=== PATIENT | female | born 1950 | race Caucasian/White ===

== ENCOUNTER 2017-03-16 07:03 | Emergency (ER) | payer MEDICARE ==
[2017-03-16 07:17] VITALS: BP 158/95
--- NOTE | 2017-03-16 07:27 | UC ---
Respiratory Complaint HPI - HPI Summary HPI Summary: cough x 7 days non-productive cough, no nasal congestion , + fatigue, wheezing + fever, chills - History of Current Complaint Chief Complaint: UCRespiratory Stated Complaint: ACHES CONGESTION FEVER COUGH Time Seen by Provider: 03/16/17 07:10 Hx Obtained From: Patient Onset/Duration: Gradual Onset, Lasting Days - 7, Still Present Timing: Constant Severity Initially: Moderate Severity Currently: Moderate Character: Cough: Nonproductive Aggravating Factors: Exertion, Deep Breaths, Recumbent Position Alleviating Factors: Nothing Associated Signs And Symptoms: Positive: Dyspnea, Fever, Chills, Wheezing. Negative: Hemoptysis, Dizziness, Calf Pain, Calf Swelling, Edema, URI, Nasal Congestion, Hoarseness, Sinus Discomfort - Allergies/Home Medications Allergies/Adverse Reactions: Allergies Allergy/AdvReac Type Severity Reaction Status Date / Time Erythromycin AdvReac Intermediate Rash Verified 03/16/17 07:11 Penicillin V AdvReac Intermediate Rash Verified 03/16/17 07:11 [From Penicillin VK Potassium] Home Medications: Home Medications Clonidine HCl [Catapres 0.1 MG TAB] 0.1 mg PO BEDTIME 03/16/17 [History Confirmed 03/16/17] DULoxetine DR CAP* [Cymbalta CAP*] 20 mg PO DAILY 03/16/17 [History Confirmed ] Levothyroxine TAB* [Synthroid TAB*] 50 mcg PO DAILY 03/16/17 [History Confirmed 03/16/17] Naltrexone TAB* 1.5 mg PO DAILY 03/16/17 [History Confirmed 03/16/17] Olmesartan Medoxomil [Benicar] 40 mg PO DAILY 03/16/17 [History Confirmed ] Oxcarbazepine [Oxtellar Xr] 75 mg PO BEDTIME 03/16/17 [History Confirmed ] Thyroid [[place] Thyroid] 45 mg PO DAILY 03/16/17 [History Confirmed 03/16/17] PMH/Surg Hx/FS Hx/Imm Hx - Additional Past Medical History Additional PMH: sleep apnea Endocrine History: Hypothyroidism - Surgical History Surgical History: Yes Surgery Procedure, Year, and Place: Hysterectomy-1992; Right knee meniscus tear ; Right toe joint surgery; Right Rotator Cuff Repair; Oopherectomy-2009. bilateral knee replacements. - Family History Known Family History: Positive: Hypertension - Social History Alcohol Use: None Substance Use Type: None Smoking Status (MU): Former Smoker When Did the Patient Quit Smoking/Using Tobacco: 25-30 YEARS AGO - Immunization History Most Recent Influenza Vaccination: Never Most Recent Tetanus Shot: Unknown Most Recent Pneumonia Vaccination: Within 10 years Review of Systems Constitutional: Fever, Chills, Fatigue Skin: Negative Eyes: Negative ENT: Negative Respiratory: Shortness Of Breath, Cough Cardiovascular: Negative Is Patient Immunocompromised?: No All Other Systems Reviewed And Are Negative: Yes Physical Exam Triage Information Reviewed: Yes Appearance: Well-Appearing, No Pain Distress, Well-Nourished Vital Signs: Initial Vital Signs Temp 99 F 03/16/17 07:12 Pulse 72 03/16/17 07:12 Resp 18 03/16/17 07:12 BP 158/95 03/16/17 07:12 Pulse Ox 98 03/16/17 07:12 Vital Signs Reviewed: Yes Eye Exam: Normal Eyes: Positive: Conjunctiva Clear ENT: Positive: Normal ENT inspection, Hearing grossly normal, Pharynx normal Neck: Positive: Supple, Nontender, No Lymphadenopathy Respiratory: Positive: Chest non-tender, No respiratory distress, Crackles, Wheezing Skin Exam: Normal UC Diagnostic Evaluation - Laboratory O2 Sat by Pulse Oximetry: 98 Respiratory Course/Dx - Differential Dx/Diagnosis Provider Diagnoses: acute bronchitis Discharge - Discharge Plan Condition: Stable Disposition: HOME Prescriptions: DOXYcycline CAP(*) [DOXYcycline 100MG CAP(*)] 100 mg PO BID #20 cap Guaifenesin-Codeine [Cheratussin AC] 10 ml PO Q8H PRN #120 ml MDD 30 ML PRN Reason: Cough Patient Education Materials: Acute Bronchitis (ED) Referrals: Landry Short MD [Primary Care Provider] - 7 Days
== END 2017-03-16 07:37 | disposition home or self-care (01) ==
LOC: UCCORT 07:03
DX: J20.9 Acute bronchitis, unspecified (principal); E03.9 Hypothyroidism, unspecified; Z96.653 Presence of artificial knee joint, bilateral; Z90.710 Acquired absence of both cervix and uterus; Z88.1 Allergy status to other antibiotic agents; Z88.0 Allergy status to penicillin; Z87.891 Personal history of nicotine dependence
CPT/HCPCS: 99212; G0463

== ENCOUNTER 2018-11-16 17:59 | Emergency (ER) | payer MEDICARE ==
--- NOTE | 2018-11-16 18:26 | ED ---
Abdominal Pain/Female - HPI Summary HPI Summary: Pt is a 68 y/o F presenting to the ED with a chief complaint of R-sided flank pain onset about 3 weeks ago. She describes it as stabbing and burning, it is intermittent, and worse with any kind of movement, but especially when changing positions. She denies fevers, chills, N/V/D, constipation, dysuria, hematuria, numbness or weakness in the LE. - History of Current Complaint Chief Complaint: EDFlankPain Stated Complaint: PAIN ON RT SIDE PER PT Time Seen by Provider: 11/16/18 18:12 Hx Obtained From: Patient Onset/Duration: Gradual Onset, Lasting Weeks, Still Present Timing: Hours Severity Initially: Mild Severity Currently: None Pain Intensity: 0 Pain Scale Used: 0-10 Numeric Location: Flank - R Radiates: No Character: Sharp, Burning Aggravating Factor(s): Movement Alleviating Factor(s): Nothing Associated Signs and Symptoms: Negative: Constipation, Urinary Symptoms, Nausea , Vomiting, Diarrhea Allergies/Adverse Reactions: Allergies Allergy/AdvReac Type Severity Reaction Status Date / Time amlodipine Allergy Unknown Verified 08/20/18 17:05 Reaction Details erythromycin base Allergy Rash Verified 08/20/18 17:05 hydrochlorothiazide Allergy Unknown Verified 08/20/18 17:05 Reaction Details Penicillins Allergy Rash Verified 08/20/18 17:05 Home Medications: Home Medications Cyanocobalamin/Cobamamide [Vitamin B-12 5,000 Mcg Tab Sl] 1 tab PO SEE INSTRUCTIONS 11/16/18 [History Confirmed 11/16/18] PMH/Surg Hx/FS Hx/Imm Hx Previously Healthy: Yes Endocrine/Hematology History: Reports: Hx Thyroid Disease - Hypothyroid, Other Endocrine/Hematological Disorders - Lyme Disease Denies: Hx Diabetes, Hx Systemic Lupus Erythematosus Cardiovascular History: Reports: Hx Hypertension Denies: Hx Congestive Heart Failure Respiratory History: Reports: Hx Asthma - IN THE PAST, Hx Sleep Apnea - current CPAP user. GI History: Reports: Hx Diverticulosis History: Denies: Hx Dialysis, Hx Renal Disease Musculoskeletal History: Reports: Hx Arthritis - BILAT. KNEES, Hx Fibromyalgia, Other Musculoskeletal History - OSTEOPOROSIS Denies: Hx Rheumatoid Arthritis Sensory History: Reports: Hx Contacts or Glasses Denies: Hx Hearing Aid Opthamlomology History: Reports: Hx Contacts or Glasses Neurological History: Reports: Hx Nerve Disease - FIBROMYALGIA, LYME DISEASE, Other Neuro Impairments/Disorders - DIZZINESS - MEDICATION Psychiatric History: Reports: Hx Anxiety, Hx Depression - Cancer History Hx Chemotherapy: No Hx Radiation Therapy: No - Surgical History Surgery Procedure, Year, and Place: Hysterectomy-1992; Right knee meniscus tear ; Right toe joint surgery; Right Rotator Cuff Repair; Oopherectomy-2009. bilateral knee replacements. Hx Anesthesia Reactions: Yes - NO EPIDURAL Infectious Disease History: No Infectious Disease History: Denies: Traveled Outside the [place] in Last 30 Days - Family History Known Family History: Positive: Hypertension - Social History Alcohol Use: None Hx Substance Use: Yes Substance Use Type: Reports: Marijuana Substance Use Comment - Amount & Last Used: medical Hx Tobacco Use: Yes Smoking Status (MU): Former Smoker Review of Systems Negative: Fever, Chills Positive: Abdominal Pain - R flank pain. Negative: Vomiting, Diarrhea, Nausea, Other - constipation Negative: dysuria, hematuria Negative: Weakness, Numbness All Other Systems Reviewed And Are Negative: Yes Physical Exam - Summary Physical Exam Summary: Constitutional: Well-developed, Well-nourished, Alert. (-) Distressed Skin: Warm, Dry HENT: Normocephalic; Atraumatic Eyes: Conjunctiva normal Neck: Musculoskeletal ROM normal neck. (-) JVD, (-) Stridor, (-) Tracheal deviation, no midline spinal tenderness Cardio: Rhythm regular, rate normal, Heart sounds normal; Intact distal pulses; The pedal pulses are 2+ and symmetric. Radial pulses are 2+ and symmetric. (-) Murmur Pulmonary/Chest wall: Effort normal. (-) Respiratory distress, (-) Wheezes, (-) Rales Abd: Soft, R lower flank tenderness, no abd tenderness, (-) Distension, (-) Guarding, (-) Rebound Musculoskeletal: (-) Edema, pain with walking, ambulates on heels and toes Lymph: (-) Cervical adenopathy Neuro: Alert, Oriented x3 Psych: Mood and affect Normal Triage Information Reviewed: Yes Vital Signs On Initial Exam: Initial Vitals Temp Pulse Resp BP Pulse Ox 97.1 F 83 18 214/104 95 11/16/18 18:00 11/16/18 18:00 11/16/18 18:00 11/16/18 18:00 11/16/18 18:00 Vital Signs Reviewed: Yes Diagnostics - Vital Signs Vital Signs Temp Pulse Resp BP Pulse Ox 11/16/18 18:00 97.1 F 83 18 214/104 95 - Laboratory Lab Statement: Any lab studies that have been ordered have been reviewed, and results considered in the medical decision making process. - CT CT a/p CT Interpretation Completed By: Radiologist Summary of CT Findings: 1. No visible renal, ureteral or bladder calculi. 2. As previously seen, there is colonic diverticulosis with no evidence for acute diverticulitis on the current exam. ED physician has reviewed this report. Abdominal Pain Fem Course/Dx - Course Course Of Treatment: Patient is here with right lower flank pain that sounds [place] skeletal nature. However, given patient's age and persistent symptoms and work up was performed. Patient UA performed showed no evidence of UTI or hematuria. Patient has CT scan showed no nephrolithiasis or AAA. Patient was discharged with lidocaine patches and Motrin. - Diagnoses Provider Diagnoses: Right flank pain, Musculoskeletal strain Discharge - Sign-Out/Discharge Documenting (check all that apply): Patient Departure Patient Received Moderate/Deep Sedation with Procedure: No - Discharge Plan Condition: Stable Disposition: HOME Prescriptions: Ibuprofen TAB* [Motrin TAB* 600 MG] 600 mg PO Q6H PRN #30 tab PRN Reason: Pain - Moderate Lidocaine PATCH 5%* [Lidoderm 5% Patch*] 1 patch TRANSDERM DAILY #5 patch Patient Education Materials: Muscle Strain (ED), Flank Pain (ED) Referrals: Lnadry Short MD [Primary Care Provider] - Additional Instructions: Please follow up with your primary care provider within the next 2-3 days. Return to the emergency department with any new or worsening symptoms. - Billing Disposition and Condition Condition: STABLE Disposition: Home - Attestation Statements Document Initiated by Chichiibisabella: Yes Documenting Scribe: Lucy Lizama Provider For Whom Sharri is Documenting (Include Credential): Chavo Duong MD. Scribe Attestation: Lucy Lara scribed for Chavo Duong MD. on 11/16/18 at 2054. Scribe Documentation Reviewed: Yes Provider Attestation: The documentation as recorded by the Lucy hinkle accurately reflects the service I personally performed and the decisions made by Chavo schaffer MD. Status of Scribe Document: Viewed
[2018-11-16 18:49] LABS: Urine Appearance Clear; Urine Bilirubin Negative (Negative); Urine Blood Negative (Negative); Urine Color Yellow; Urine Glucose Negative (Negative); Urine Ketones Negative (Negative); Urine Nitrite Negative (Negative); Urine Protein Negative (Negative); Urine Specific Gravity 1.018 (1.010-1.030); Urine Urobilinogen Negative (Negative)
[2018-11-16 21:01] VITALS: BP 191/99
== END 2018-11-16 21:00 | disposition home or self-care (01) ==
LOC: ED 17:59
DX: S39.011A Strain of muscle, fascia and tendon of abdomen, initial encounter (principal); X58.XXXA Exposure to other specified factors, initial encounter; Y92.9 Unspecified place or not applicable; E03.9 Hypothyroidism, unspecified; I10 Essential (primary) hypertension; F41.9 Anxiety disorder, unspecified; F32.9 Major depressive disorder, single episode, unspecified; Z79.899 Other long term (current) drug therapy; Z88.1 Allergy status to other antibiotic agents; Z88.0 Allergy status to penicillin; Z88.8 Allergy status to other drugs, medicaments and biological substances; Z87.891 Personal history of nicotine dependence
CPT/HCPCS: 74176; 81003; 99283